=== PATIENT | male | born 1985 | race Caucasian/White ===

== ENCOUNTER 2019-05-17 19:05 | Emergency (ER) | payer SELFPAY ==
[2019-05-17] MEDS ORDERED: Morphine 4 MG/ML VIAL ONE (19:25)
[2019-05-17] MEDS ORDERED: Ondansetron PF 4 MG/2 ML Vial ONE (19:25)
--- NOTE | 2019-05-17 21:01 | CT ---
EXAM: CT ANGIOGRAM OF THE RIGHT LOWER EXTREMITY: 05/17/19 HISTORY: Trauma. Evaluate for vascular compromise/injury. COMPARISON: None. TECHNIQUE: CT angiogram of the right lower extremity is performed in the axial plane. Three dimensional reformat augustina images are submitted for interpretation. FINDINGS: The fascial planes between the right lower extremity muscles is preserved. There is mild stranding of the medial posterior subcutaneous fat at the level of the distal femur as well as the anterior and m edial fat at the level of the proximal to mid/distal tibia. Along the distal aspect of the right lowe r extremity, there is evidence of subcutaneous fat stranding along the lateral aspect. There is no ev idence of fracture, cortical irregularity or periosteal reaction. The joint space appears to be prese rved, along with alignment at the level of the ankle and knee. No significant suprapatellar effusion or obvious patellar dislocation. There is appropriate enhancement and luminal diameter of the distal superficial femoral artery, popli teal artery, and the arterial trifurcation. There is three vessel supply down to the level of the ank le. Inadequate opacification of the distal right lower extremity arterial system likely due to timing of bolus. There is no evidence of vascular occlusion, dissection, extravasation. IMPRESSION: 1. Soft tissue swelling involving the right lower extremity, posttraumatic. No radiopaque foreign bodies. No fractures. 2. No evidence of vascular occlusion, dissection, or extravasation of contrast to suggest vascul ar injury. POS: [facility]
--- NOTE | 2019-05-17 21:24 | CT ---
CT ANGIOGRAM LEFT LOWER EXTREMITY WITH 3D RENDERIN05/17/19 HISTORY: Level II trauma, ejection from horse, injury with swelling to both lower legs. FINDINGS: The exam performed from the distal superficial femoral artery down to the level above the ankle. The superficial femoral artery, popliteal artery, anterior tibial artery, posterior tibial artery, and pe roneal arteries are all well demonstrated and appear within normal limits. There is some focal subcut aneous fat stranding noted anteriorly and medially beginning at the mid diaphysis level and extending caudally with a somewhat focal area somewhat more nodular in appearance measuring 3.3 cm, probably a focal hematoma. No evidence for acute osseous abnormality. IMPRESSION: Prominent anterior medial soft tissue swelling and subcutaneous fat stranding of the mid portion of t he lower leg including a several centimeter diameter probable hematoma. Normal appearing left superfi cial femoral, popliteal, anterior, posterior, and peroneal arteries down to the level of the upper an kle. POS: [facility]
== END 2019-05-17 21:15 | disposition home or self-care (01) ==
LOC: ERS 19:05
DX: S80.12XA Contusion of left lower leg, initial encounter (principal); S80.11XA Contusion of right lower leg, initial encounter; V80.010A Animal-rider injured by fall from or being thrown from horse in noncollision accident, initial encounter
CPT/HCPCS: 96374; 96375; J2270; J2405

== ENCOUNTER 2019-06-23 10:42 | Emergency (ER) | payer OTHER, SELFPAY ==
[2019-06-23] MEDS ORDERED: Lidocaine 2% MPF 10 ML AMP (For Epidural Use) ONE (11:50)
[2019-06-23] MEDS ORDERED: Lidocaine 1% (PF) 30 ML VIAL ONE (11:51)
[2019-06-23] MEDS ORDERED: HYDROcodone/Acetaminophen 5/325 mg Tablet ONE (12:31)
== END 2019-06-23 12:45 | disposition home or self-care (01) ==
LOC: ERS 10:42
DX: L02.416 Cutaneous abscess of left lower limb (principal); F17.220 Nicotine dependence, chewing tobacco, uncomplicated
CPT/HCPCS: 10060; J2001